=== PATIENT | male | born 1950 | race Caucasian/White ===

== ENCOUNTER 2021-02-27 06:33 | Day surgery (SDC) | payer OTHER ==
[2021-02-27] MEDS ORDERED: Sodium Chloride 0.9% 1,000 ML IV SCH (07:00)
[2021-02-27] MEDS ORDERED: Propofol 200 MG/20 ML SDV ONE (07:26)
[2021-02-27] MEDS ORDERED: fentaNYL 100 MCG/2 ML SDV ONE (07:27)
[2021-02-27] MEDS ORDERED: Midazolam 1 MG/ML 2 ML SDV ONE (07:27)
--- NOTE | 2021-02-27 13:20 | OR ---
DATE OF PROCEDURE: 02/27/2021 SURGEON: Sj Wade MD PROCEDURE: Colonoscopy. FINDINGS: 1. Descending colon polyp, approximately 5 mm, completely removed using cold biopsy forceps. 2. Sigmoid colon polyp, approximately 8 mm, completely removed using hot snare wire device. COMPLICATIONS: None. ORDER MANAGER: None. ANESTHESIA: MAC. PREOPERATIVE DIAGNOSIS: Screening colonoscopy. POSTOPERATIVE DIAGNOSIS: Screening colonoscopy. RISKS: Risks, benefits, alternatives, and limitations including but not limited to infection, bleeding, perforation, and false positives and false negatives were explained to the patient, and they wished to proceed. PROCEDURE IN DETAIL: The patient was placed in left lateral decubitus position. Digital rectal exam was performed without abnormality. Scope was introduced and advanced atraumatically to the ileocecal valve. A photo was taken of appendiceal orifice. The scope was brought back to the ascending, transverse, and descending colon and retroflexed. No evidence of old or new blood. No masses. No diverticulosis. No old or new blood. The prep was acceptable, approximately 90% of luminal surface could be seen. Greater than 8 minutes was spent removing the scope. The patient tolerated the procedure well. Of note, the patient had a large volume of bigeminy during this procedure; however, he was asymptomatic with this. The patient will be referred back to his primary care provider as this is most likely a chronic underlying rhythm. Sj Wade MD /[id number]
== END 2021-02-27 10:05 | disposition home or self-care (01) ==
LOC: JP.SDS 06:33
PROVIDERS: ATTEND Surgery
DX: Z12.11 Encounter for screening for malignant neoplasm of colon (principal); D12.3 Benign neoplasm of transverse colon; K63.5 Polyp of colon; I10 Essential (primary) hypertension; E11.9 Type 2 diabetes mellitus without complications; Z86.010 Personal history of colon polyps
CPT/HCPCS: 45380; 45385; 88305; J2250; J2704; J3010; J7030

== ENCOUNTER 2023-06-25 11:00 | Emergency (ER) | payer MEDICARE, OTHER ==
[2023-06-25] MEDS: Acetaminophen/HYDROcodone 325-5 MG Tab PO ONE (12:46)
== END 2023-06-25 13:31 | disposition home or self-care (01) ==
LOC: JP.ED 11:00
DX: S22.42XA Multiple fractures of ribs, left side, initial encounter for closed fracture (principal); R04.2 Hemoptysis; F17.200 Nicotine dependence, unspecified, uncomplicated; I10 Essential (primary) hypertension; Z79.899 Other long term (current) drug therapy; Z95.5 Presence of coronary angioplasty implant and graft; W18.30XA Fall on same level, unspecified, initial encounter
CPT/HCPCS: 71250; 93005; 99284; A9270